=== PATIENT | male | born 1945 | race Caucasian/White ===

== ENCOUNTER 2022-04-02 11:38 | Inpatient (IN) | payer SELFPAY ==
[~2022-04-02] VITALS: Ht 172.7 cm; Wt 69.9 kg
[2022-04-02 15:57] LABS: BASOPHILS % 0.3 % (0.0-2.0); EOSINOPHILS % 0.5 % (0.0-5.0); HEMOGLOBIN. 13.4 g/dL (14.0-18.0); LYMPHOCYTES % 15.6 % (20.0-50.0); MEAN CORPUSCULAR HEMOGLOBIN 30.4 pg (28.0-32.0); MEAN CORPUSCULAR VOLUME 93.1 fL (80.0-94.0); MEAN PLATELET VOLUME 7.8 fl (7.4-10.4); MONOCYTES % 9.6 % (2.0-8.0); PLATELET 149 x1000/uL (130-400); RED BLOOD CELL COUNT 4.41 mill/uL (4.7-6.1)
[2022-04-02 16:03] LABS: CLARITY URINE CLEAR (CLEAR); COLOR URINE DARK YELLOW (YELLOW); KETONES URINE TRACE (NEGATIVE); LEUKOCYTE ESTERASE URINE TRACE (NEGATIVE); NITRITE URINE NEGATIVE (NEGATIVE); OCCULT BLOOD URINE NEGATIVE (NEGATIVE); PROTEIN URINE 1+ (NEGATIVE); SPECIFIC GRAVITY URINE 1.022 (1.005-1.030)
[2022-04-02 16:06] LABS: CHLORIDE 102 mEq/L (98-107)
[2022-04-02] MEDS ORDERED: IBUPROFEN 600MG TABLET PO STA (16:19)
[2022-04-02 16:48] LABS: PROTHROMBIN TIME 10.3 sec (9.6-11.0)
[2022-04-02] MEDS ORDERED: ACETAMINOPHEN WITH CODEINE 300/30MG TABLET PO STA (17:59)
[2022-04-02] MEDS ORDERED: ACETAMINOPHEN 325MG TABLET PO PRN ×2 (18:45)
[2022-04-02] MEDS ORDERED: CLONIDINE 0.1MG TABLET PO PRN (18:45)
[2022-04-02] MEDS ORDERED: ONDANSETRON HCL 4MG/2ML INJ IV PRN (18:45)
[2022-04-02] MEDS ORDERED: IPRATROPIUM/ALBUTEROL 0.5-3(2.5)MG/3ML NEB HHN PRN (18:45)
[2022-04-02 22:59] VITALS: BP 130/62
[2022-04-03] MEDS: HYDROCODONE/ACETAMINOPHEN 5/325MG TABLET PO PRN ×5 (02:10→23:04)
[2022-04-03 08:00] VITALS: BP 119/54
[2022-04-03 08:33] LABS: BASOPHILS % 0.3 % (0.0-2.0); EOSINOPHILS % 1.2 % (0.0-5.0); HEMOGLOBIN. 12.6 g/dL (14.0-18.0); MEAN CORPUSCULAR HEMOGLOBIN 31.1 pg (28.0-32.0); MEAN CORPUSCULAR VOLUME 91.3 fL (80.0-94.0); MEAN PLATELET VOLUME 8.3 fl (7.4-10.4); MONOCYTES % 11.7 % (2.0-8.0); NEUTROPHILS % 72.8 % (40.0-76.0); PLATELET 133 x1000/uL (130-400); RED BLOOD CELL COUNT 4.06 mill/uL (4.7-6.1); RED CELL DISTRIBUTION WIDTH 12.3 % (11.6-14.6)
[2022-04-03 08:56] LABS: CHLORIDE 103 mEq/L (98-107)
[2022-04-03 10:56] LABS: *AMPHETAMINES SCREEN URINE PRESUMTIVE POSITIVE (NEGATIVE); *BARBITURATES SCREEN URINE NEGATIVE (NEGATIVE); *BENZODIAZEPINES SCREEN URINE NEGATIVE (NEGATIVE); *COCAINE SCREEN URINE NEGATIVE (NEGATIVE); CANNABINOID URINE SCREEN NEGATIVE (NEGATIVE); METHADONE URINE SCREEN NEGATIVE (NEGATIVE); OPIATES URINE SCREEN NEGATIVE (NEGATIVE); PHENCYCLIDINE URINE SCREEN NEGATIVE (NEGATIVE)
[2022-04-03] MEDS ORDERED: NALOXONE HCL 0.4MG/ML VIAL IV PRN (11:00)
[2022-04-03] MEDS: MORPHINE SULFATE 2 MG/ML CPJ (NOT FOR IM USE) IV PRN ×3 (11:38→21:05)
[2022-04-03 12:00] VITALS: BP 116/61
[2022-04-03 16:00] VITALS: BP 117/57
[2022-04-03] MEDS: LORAZEPAM 0.5MG TABLET PO PRN (20:43)
[2022-04-03 23:06] VITALS: BP 142/67
[2022-04-04 04:00] VITALS: BP 126/62
[2022-04-04] MEDS: LORAZEPAM 0.5MG TABLET PO PRN (04:10)
[2022-04-04] MEDS: MORPHINE SULFATE 2 MG/ML CPJ (NOT FOR IM USE) IV PRN ×3 (04:11→18:00)
[2022-04-04 08:00] VITALS: BP 146/65
[2022-04-04] MEDS: HYDROCODONE/ACETAMINOPHEN 5/325MG TABLET PO PRN ×2 (08:52→16:26)
[2022-04-04 12:00] VITALS: BP 147/60
[2022-04-04 16:00] VITALS: BP 97/58
[2022-04-05] VITALS: BP 153/66
[2022-04-05] MEDS: MORPHINE SULFATE 2 MG/ML CPJ (NOT FOR IM USE) IV PRN ×3 (02:19→18:45)
[2022-04-05 04:00] VITALS: BP 130/70
[2022-04-05 08:00] VITALS: BP 149/70
[2022-04-05] MEDS: HYDROCODONE/ACETAMINOPHEN 10/325MG TABLET PO PRN ×2 (08:50→17:28)
[2022-04-05] MEDS: HYDROCODONE/ACETAMINOPHEN 5/325MG TABLET PO PRN ×2 (11:33→21:05)
[2022-04-05 12:00] VITALS: BP 124/74
[2022-04-05 16:00] VITALS: BP 132/77
[2022-04-05 20:00] VITALS: BP 117/70
[2022-04-06] VITALS: BP 112/52
[2022-04-06] MEDS: HYDROCODONE/ACETAMINOPHEN 10/325MG TABLET PO PRN ×3 (01:44→19:24)
[2022-04-06 04:00] VITALS: BP 129/59
[2022-04-06 08:00] VITALS: BP 107/46
[2022-04-06] MEDS: MORPHINE SULFATE 2 MG/ML CPJ (NOT FOR IM USE) IV PRN ×3 (08:46→21:10)
[2022-04-06] MEDS: HYDROCODONE/ACETAMINOPHEN 5/325MG TABLET PO PRN ×2 (10:53→17:52)
[2022-04-06 12:00] VITALS: BP 114/61
[2022-04-06 16:21] VITALS: BP 108/41
[2022-04-06 20:00] VITALS: BP 147/76
[2022-04-07] VITALS: BP 146/76
[2022-04-07] MEDS: HYDROCODONE/ACETAMINOPHEN 5/325MG TABLET PO PRN ×3 (00:30→16:27)
[2022-04-07] MEDS: MORPHINE SULFATE 2 MG/ML CPJ (NOT FOR IM USE) IV PRN ×3 (01:28→13:10)
[2022-04-07] MEDS: HYDROCODONE/ACETAMINOPHEN 10/325MG TABLET PO PRN ×3 (03:36→18:29)
[2022-04-07 04:00] VITALS: BP 140/70
[2022-04-07 06:10] LABS: HIV 1 ABS Reactive (Non Reactive); HIV 2 ABS Non Reactive (Non Reactive); HIV SCREEN 4G Preliminary Reactive (Non Reactive); INTERPRETATION HIV-1 Positive (.)
[2022-04-07 08:00] VITALS: BP 129/62
[2022-04-07 12:00] VITALS: BP 123/58
[2022-04-07 15:50] VITALS: BP 114/61
[2022-04-07 20:00] VITALS: BP 125/61
[2022-04-08] VITALS: BP 120/62
[2022-04-08 04:00] VITALS: BP 122/62
[2022-04-08] MEDS: MORPHINE SULFATE 2 MG/ML CPJ (NOT FOR IM USE) IV PRN (06:17)
[2022-04-08 08:00] VITALS: BP 109/50
[2022-04-08] MEDS: HYDROCODONE/ACETAMINOPHEN 10/325MG TABLET PO PRN ×2 (08:19→19:03)
[2022-04-08 12:00] VITALS: BP 123/42
[2022-04-08 16:00] VITALS: BP 113/46
[2022-04-08 20:00] VITALS: BP 126/52
[2022-04-09] VITALS: BP 106/46
[2022-04-09] MEDS: MORPHINE SULFATE 2 MG/ML CPJ (NOT FOR IM USE) IV PRN ×2 (01:24→08:39)
[2022-04-09 04:00] VITALS: BP 108/50
[2022-04-09 08:00] VITALS: BP 120/52
[2022-04-09 12:00] VITALS: BP 127/40
[2022-04-09 12:50] LABS: BASOPHILS % 0.3 % (0.0-2.0); EOSINOPHILS % 0.9 % (0.0-5.0); HEMATOCRIT. 35.1 % (42.0-52.0); HEMOGLOBIN. 11.8 g/dL (14.0-18.0); MEAN CORPUSCULAR HEMOGLOBIN 30.2 pg (28.0-32.0); MEAN CORPUSCULAR VOLUME 90.2 fL (80.0-94.0); MEAN PLATELET VOLUME 8.1 fl (7.4-10.4); MONOCYTES % 13.7 % (2.0-8.0); NEUTROPHILS % 73.1 % (40.0-76.0); PLATELET 165 x1000/uL (130-400); RED CELL DISTRIBUTION WIDTH 12.4 % (11.6-14.6)
[2022-04-09 12:59] LABS: CHLORIDE 95 mEq/L (98-107)
[2022-04-09] MEDS: HYDROCODONE/ACETAMINOPHEN 10/325MG TABLET PO PRN ×2 (13:40→23:51)
[2022-04-09 16:00] VITALS: BP 128/60
[2022-04-09 20:00] VITALS: BP 106/48
[2022-04-10] VITALS: BP 110/50
[2022-04-10 04:00] VITALS: BP 112/50
[2022-04-10 08:00] VITALS: BP 112/51
[2022-04-10 12:00] VITALS: BP 126/51
[2022-04-10] MEDS: HYDROCODONE/ACETAMINOPHEN 10/325MG TABLET PO PRN ×2 (12:28→21:47)
[2022-04-10 16:00] VITALS: BP 116/46
[2022-04-10 20:00] VITALS: BP 114/44
[2022-04-11] VITALS: BP 115/51
[2022-04-11 04:00] VITALS: BP 127/55
[2022-04-11] MEDS: HYDROCODONE/ACETAMINOPHEN 10/325MG TABLET PO PRN ×3 (05:47→21:35)
[2022-04-11 08:00] VITALS: BP 132/59
[2022-04-11] MEDS ORDERED: NALOXONE HCL 0.4MG/ML VIAL IV PRN (08:30)
[2022-04-11] MEDS ORDERED: MORPHINE SULFATE 2 MG/ML CPJ (NOT FOR IM USE) IV SCH (09:00)
[2022-04-11 16:00] VITALS: BP 119/76
[2022-04-11 17:10] LABS: ABSOLUTE EOSINOPHILS 0.1 x10E3/uL (0.0-0.4); ABSOLUTE LYMPHOCYTES 0.9 x10E3/uL (0.7-3.1); ABSOLUTE MONOCYTES 0.8 x10E3/uL (0.1-0.9); ABSOLUTE NEUTROPHILS 6.2 x10E3/uL (1.4-7.0); BASOPHILS 0 % (Not Estab.); HEMATOCRIT 34.1 % (37.5-51.0); HEMATOLOGY COMMENT Note: (.); IMMATURE GRANULOCYTES 1 % (Not Estab.); LYMPHOCYTES 11 % (Not Estab.); MEAN CORPUSCULAR HEMOGLOBIN 29.9 pg (26.6-33.0); MEAN CORPUSCULAR HGB CONC. 32.3 g/dL (31.5-35.7); MEAN CORPUSCULAR VOLUME 93 fL (79-97); MONOCYTES 10 % (Not Estab.); NEUTROPHILS 76 % (Not Estab.); PLATELETS 153 x10E3/uL (150-450); RBC 3.68 x10E6/uL (4.14-5.80); RED CELL DISTRIBUTION WIDTH 11.4 % (11.6-15.4); WBC 8.1 x10E3/uL (3.4-10.8)
[2022-04-11 20:00] VITALS: BP 133/55
[2022-04-12] VITALS: BP 126/62
[2022-04-12] MEDS: HYDROCODONE/ACETAMINOPHEN 10/325MG TABLET PO PRN ×2 (03:44→14:26)
[2022-04-12 04:00] VITALS: BP 126/61
[2022-04-12 10:06] LABS: % CD 4 POS. LYMPHOCYTES 18.2 % (30.8-58.5); % CD 8 POS. LYMPH 60.3 % (12.0-35.5); ABSOLUTE CD 3 702 /uL (622-2402); ABSOLUTE CD 4 HELPER 164 /uL (359-1519); ABSOLUTE CD 8 SUPPRESSOR 543 /uL (109-897)
[2022-04-12 14:26] VITALS: BP 126/61
[2022-04-15 13:11] LABS: *HIV-1 RNA BY PCR 88450 copies/mL (.)
== END 2022-04-12 14:57 | disposition left against medical advice (07) | DRG 894 ==
LOC: ER 11:38 → 6EST 18:32 → ENRESERV 20:31 → 6EST 04-11 11:00
PROVIDERS: ADMIT Internal Medicine; ATTEND Internal Medicine
DX: K13.21 Leukoplakia of oral mucosa, including tongue (principal); B20 Human immunodeficiency virus [HIV] disease; F15.90 Other stimulant use, unspecified, uncomplicated; I10 Essential (primary) hypertension; Z20.822 Contact with and (suspected) exposure to COVID-19
CPT/HCPCS: 36415; 70486; 71045; 73630; 80048; 80053; 80305; 81003; 83605; 84145; 85025; 86359; 86360; 86701; 86702; 87070; 87389; 87426; 87430; 87536; 92610; 93970; 99285; C9803; J2270